=== PATIENT | male | born 1990 | race Caucasian/White ===

== ENCOUNTER 2016-10-31 10:09 | Emergency (ER) | payer SELFPAY ==
--- NOTE | 2016-10-31 12:23 | ED CLINICAL REPORT ---
Clinical Report - Physicians/Mid Levels [facility] [address] [place] [place] [address] 10/31/2016 10:09 Patient: WOODROW SALINAS Arrived- By private vehicle. Historian- patient. HISTORY OF PRESENT ILLNESS Chief Complaint: SKIN RASH. This started About 1 week ago and is still present (stating the same). It was abrupt in onset and has been constant but is not gone now. It is described as painful and burning. It has been located on the left chest. A cause has been identified (shingles). No recent medication, insect bite or food exposure. Was not recently exposed to poison sandra or poison oak. (patient reports he is unable to have adequate pain control. States that the hydrocodone that he was prescribed does not help with the pain.). Similar symptoms previously: None. Recent medical care: Not recently seen/assessed. REVIEW OF SYSTEMS No sore throat, cough, headache, eye irritation or chest pain. No abdominal pain, nausea or vomiting. All systems otherwise negative, except as recorded above. PAST HISTORY See nurses notes. Tetanus immunization status is up-to-date. SOCIAL HISTORY Current every day smoker. No alcohol use or drug use. No recent travel. Is a local resident. FAMILY HISTORY Negative. ADDITIONAL NOTES The nursing notes have been reviewed. PHYSICAL EXAM Vital Signs: 10/31/2016 10:37 BP: 132/79. HR: 76. RR: 18. O2 saturation: 100%. Temp: 98.8 F. Blood pressure normal. Oxygen saturation normal. Appearance: Alert. Oriented X3. No acute distress. Eyes: Pupils equal, round and reactive to light. Conjunctivae and eyelids normal. ENT: Ears normal. Nose normal. Pharynx normal. Neck: Neck supple. CVS: Normal heart rate and rhythm. Heart sounds normal. Respiratory: No respiratory distress. Breath sounds normal. Chest nontender. Abdomen: Nontender. No organomegaly. Skin: (There is a vesicular type rash located at the T2 dermatome on the left. Does not cross midline. No surrounding erythema. No crepitus. area is appropriately tender. No bony modalities. No crepitus. No significant swelling.). Extremities: Normal external inspection. Extremities nontender. Neuro: Oriented X 3. No motor deficit. No sensory deficit. PROGRESS AND PROCEDURES Course of Care: The patient is a pleasant 25-year-old male with recent diagnosis of shingles presenting for evaluation of left-sidedrash and inability to sleep due to the pain. Patient had trial of hydrocodone however this is not helping with pain. We'll prescribe a stronger opioid pain medication as the rash can be very uncomfortable. I discussion with patient in regards to superinfection. Patient is aware of signs of worsening infection and will return to the emergency department if this happens. No other symptoms at this time. Patient is a good outpatient candidate. Patient is nontoxic and is in no acute distress. I discussion with patient in regards to workup, diagnosis, home care, follow-up, and return precautions. All questions answered. The patient expressed understanding of these instructions and was agreeable to them. I discussed with patient in regards to following up with primary care doctor. The patient states he is unable to get an appointment with his primary care doctor. Resources provided for clinic appointments as well. Had discussion with patient in regards to Controlled substances and need for follow-up with primary care doctor for further refills. Disposition: Discharged. Condition: good. CLINICAL IMPRESSION Neuralgia- thoracic radiculopathy (acute left upper chest). INSTRUCTIONS Warnings: GENERAL WARNINGS: Return or contact your physician immediately if your condition worsens or changes unexpectedly, if not improving as expected, or if other problems arise. Specifically return if pain, vomiting, bleeding, breathing difficulty or fever. Your Current Medications: Prescription Medications: Percocet 5 mg/325 mg: take 1 tablet orally every 6 hours as needed for pain. Dispense twenty (20). No refill. Substitution is permissible. Follow-up: Return to the emergency department as needed. Follow up with your doctor in three days. Reason for referral: recheck today's concerns. Summary of care provided to patient via paper. Screening today revealed the patient's blood pressure to be in the normal range. The patient should follow up with a primary care provider for blood pressure management. Understanding of the discharge instructions verbalized by patient. Follow-up with: [facility], , , [address], , [place], [address] Follow up. Reason for referral: contact for follow up or medication refills. Summary of care provided to patient via paper. (Electronically signed by Spenser Rosales Dr. 11/06/2016 16:05)
--- NOTE | 2016-10-31 12:23 | ED NURSING NOTES ---
Clinical Report - Nurses [facility] [address] [place] [address] 10/31/2016 10:09 Patient: WOODROW SALINAS TRIAGE Triage time 10:37 Oct 31 2016. Acuity: LEVEL 5. Chief Complaint: RECHECK OF ILLNESS STATUS. Alert. No acute distress. IVANA COMA SCORE: Ivana Coma Scale: 15- eyes open spontaneously (4); best verbal response- oriented x 4 (5); best motor response- obeys commands (6). --10:41 Shira Wallis R.N. 10:37 10/31/16. BP: 132/79. HR: 76. RR: 18. O2 saturation: 100%. Temp: 98.8 F. Pain level now 7/10. --10:41 Shira Wallis R.N. Weight: 86.1 kg stated. Height/Length: 71 inches Per Patient. BMI: 26.5. --10:36 Shira Wallis R.N. Medications Acyclovir Oral. --10:41 Shira Wallis R.N. Hydrocodone-Acetaminophen Oral. --10:41 Shira Wallis R.N. The following entry was struck by Shira Wallis R.N., 10:41 (10/31/16) Reason - other. <<STRICKEN ENTRY-- None. --10:38 Shira Wallis R.N. --END STRIKE>>. Medication/allergy information source: the patient. --10:41 Shira Wallis R.N. Allergies Tramadol. Definite Mild(itching) --10:38 Shira Wallis R.N. History Arrived by private vehicle. Historian: patient. Primary physician (none). ( Can't sleep because the Shingles are so painful.). Previous treatment: Previously seen in ED. SOCIAL HX: Smoker- current status unknown (cigarette). No alcohol use or drug use. FALL RISK ASSESSMENT: Fall risk assessment completed. No fall risk identified. NUTRITIONAL RISK ASSESSMENT: The nutritional risk assessment revealed no deficiencies. FUNCTIONAL ASSESSMENT: Functional assessment: no impairments noted. LEARNING NEEDS ASSESSMENT: The learning needs assessment revealed no barriers. SKIN INTEGRITY ASSESSMENT: Skin integrity risk assessment completed. No skin integrity risk identified. --10:41 Shira Wallis R.N. PROBLEMS: Herpes Zoster. Bursitis. Neck Pain. Migraine Headache. Sprain. Migraines. Bronchitis. Cellulitis. Chronic Back Pain. Immunizations. Insomnia. Back Pain. --10:38 Shira Wallis R.N. Interventions ID band on patient. To room. --10:41 Shira Wallis R.N. PHYSICAL ASSESSMENT Ambulatory to room. GENERAL / NEURO / PSYCH: Appears in no acute distress. EXTREMITIES: Capillary refill is less than 2 seconds in the extremities. SKIN: Skin is warm and dry. --10:55 Shira Wallis R.N. NURSING PROGRESS NOTES Patient ready for evaluation- ED physician notified. --10:41 Shira Wallis R.N. DISPOSITION / DISCHARGE Condition at departure: improved. No learning barriers present. Discharge instructions provided and reviewed with the patient. Reviewed medication(s) side effects, precautions, dosing and course information. Prescription(s) given to the patient. Patient verbalized understanding. Written instructions provided in Lebanese. The patient was discharged home. He left the Emergency Department ambulatory and via private vehicle. Patient driving. Medication list reviewed and validated. --12:40 Britt Win R.N. 12:35 10/31/16. BP: 127/93. HR: 76. RR: 18. O2 saturation: 100% on room air. Temp: deferred. Pain level now: 03/06. 10:37 10/31/16. BP: 132/79. HR: 76. RR: 18. O2 saturation: 100%. Temp: 98.8 F. Pain level now 05/06. --12:40 Britt Win R.N. Locked/Released at 10/31/2016 12:41 by Britt Win R.N.
--- NOTE | 2016-10-31 12:23 | ED NURSING NOTES ---
Clinical Report - Nurses [facility] [address] [place] [address] 10/31/2016 10:09 Patient: WOODROW SALINAS TRIAGE Triage time 10:37 Oct 31 2016. Acuity: LEVEL 5. Chief Complaint: RECHECK OF ILLNESS STATUS. Alert. No acute distress. IVANA COMA SCORE: Ivana Coma Scale: 15- eyes open spontaneously (4); best verbal response- oriented x 4 (5); best motor response- obeys commands (6). --10:41 Shira Wallis R.N. 10:37 10/31/16. BP: 132/79. HR: 76. RR: 18. O2 saturation: 100%. Temp: 98.8 F. Pain level now 7/10. --10:41 Shira Wallis R.N. Weight: 86.1 kg stated. Height/Length: 71 inches Per Patient. BMI: 26.5. --10:36 Shira Wallis R.N. Medications Acyclovir Oral. --10:41 Shira Wallis R.N. Hydrocodone-Acetaminophen Oral. --10:41 Shira Wallis R.N. The following entry was struck by Shira Wallis R.N., 10:41 (10/31/16) Reason - other. <<STRICKEN ENTRY-- None. --10:38 Shira Wallis R.N. --END STRIKE>>. Medication/allergy information source: the patient. --10:41 Shira Wallis R.N. Allergies Tramadol. Definite Mild(itching) --10:38 Shira Wallis R.N. History Arrived by private vehicle. Historian: patient. Primary physician (none). ( Can't sleep because the Shingles are so painful.). Previous treatment: Previously seen in ED. SOCIAL HX: Smoker- current status unknown (cigarette). No alcohol use or drug use. FALL RISK ASSESSMENT: Fall risk assessment completed. No fall risk identified. NUTRITIONAL RISK ASSESSMENT: The nutritional risk assessment revealed no deficiencies. FUNCTIONAL ASSESSMENT: Functional assessment: no impairments noted. LEARNING NEEDS ASSESSMENT: The learning needs assessment revealed no barriers. SKIN INTEGRITY ASSESSMENT: Skin integrity risk assessment completed. No skin integrity risk identified. --10:41 Shira Wallis R.N. PROBLEMS: Herpes Zoster. Bursitis. Neck Pain. Migraine Headache. Sprain. Migraines. Bronchitis. Cellulitis. Chronic Back Pain. Immunizations. Insomnia. Back Pain. --10:38 Shira Wallis R.N. Interventions ID band on patient. To room. --10:41 Shira Wallis R.N. PHYSICAL ASSESSMENT Ambulatory to room. GENERAL / NEURO / PSYCH: Appears in no acute distress. EXTREMITIES: Capillary refill is less than 2 seconds in the extremities. SKIN: Skin is warm and dry. --10:55 Shira Wallis R.N. NURSING PROGRESS NOTES Patient ready for evaluation- ED physician notified. --10:41 Shira Wallis R.N. DISPOSITION / DISCHARGE Condition at departure: improved. No learning barriers present. Discharge instructions provided and reviewed with the patient. Reviewed medication(s) side effects, precautions, dosing and course information. Prescription(s) given to the patient. Patient verbalized understanding. Written instructions provided in Spanish. The patient was discharged home. He left the Emergency Department ambulatory and via private vehicle. Patient driving. Medication list reviewed and validated. --12:40 Britt Win R.N. 12:35 10/31/16. BP: 127/93. HR: 76. RR: 18. O2 saturation: 100% on room air. Temp: deferred. Pain level now: 03/06. 10:37 10/31/16. BP: 132/79. HR: 76. RR: 18. O2 saturation: 100%. Temp: 98.8 F. Pain level now 05/06. --12:40 Britt Win R.N. Locked/Released at 10/31/2016 12:41 by Britt Win R.N.
--- NOTE | 2016-10-31 12:23 | ED CLINICAL REPORT ---
Clinical Report - Physicians/Mid Levels [facility] [address] [place] [address] 10/31/2016 10:09 Patient: WOODROW SALINAS Arrived- By private vehicle. Historian- patient. HISTORY OF PRESENT ILLNESS Chief Complaint: SKIN RASH. This started About 1 week ago and is still present (stating the same). It was abrupt in onset and has been constant but is not gone now. It is described as painful and burning. It has been located on the left chest. A cause has been identified (shingles). No recent medication, insect bite or food exposure. Was not recently exposed to poison sandra or poison oak. (patient reports he is unable to have adequate pain control. States that the hydrocodone that he was prescribed does not help with the pain.). Similar symptoms previously: None. Recent medical care: Not recently seen/assessed. REVIEW OF SYSTEMS No sore throat, cough, headache, eye irritation or chest pain. No abdominal pain, nausea or vomiting. All systems otherwise negative, except as recorded above. PAST HISTORY See nurses notes. Tetanus immunization status is up-to-date. SOCIAL HISTORY Current every day smoker. No alcohol use or drug use. No recent travel. Is a local resident. FAMILY HISTORY Negative. ADDITIONAL NOTES The nursing notes have been reviewed. PHYSICAL EXAM Vital Signs: 10/31/2016 10:37 BP: 132/79. HR: 76. RR: 18. O2 saturation: 100%. Temp: 98.8 F. Blood pressure normal. Oxygen saturation normal. Appearance: Alert. Oriented X3. No acute distress. Eyes: Pupils equal, round and reactive to light. Conjunctivae and eyelids normal. ENT: Ears normal. Nose normal. Pharynx normal. Neck: Neck supple. CVS: Normal heart rate and rhythm. Heart sounds normal. Respiratory: No respiratory distress. Breath sounds normal. Chest nontender. Abdomen: Nontender. No organomegaly. Skin: (There is a vesicular type rash located at the T2 dermatome on the left. Does not cross midline. No surrounding erythema. No crepitus. area is appropriately tender. No bony modalities. No crepitus. No significant swelling.). Extremities: Normal external inspection. Extremities nontender. Neuro: Oriented X 3. No motor deficit. No sensory deficit. PROGRESS AND PROCEDURES Course of Care: The patient is a pleasant 25-year-old male with recent diagnosis of shingles presenting for evaluation of left-sidedrash and inability to sleep due to the pain. Patient had trial of hydrocodone however this is not helping with pain. We'll prescribe a stronger opioid pain medication as the rash can be very uncomfortable. I discussion with patient in regards to superinfection. Patient is aware of signs of worsening infection and will return to the emergency department if this happens. No other symptoms at this time. Patient is a good outpatient candidate. Patient is nontoxic and is in no acute distress. I discussion with patient in regards to workup, diagnosis, home care, follow-up, and return precautions. All questions answered. The patient expressed understanding of these instructions and was agreeable to them. I discussed with patient in regards to following up with primary care doctor. The patient states he is unable to get an appointment with his primary care doctor. Resources provided for clinic appointments as well. Had discussion with patient in regards to Controlled substances and need for follow-up with primary care doctor for further refills. Disposition: Discharged. Condition: good. CLINICAL IMPRESSION Neuralgia- thoracic radiculopathy (acute left upper chest). INSTRUCTIONS Warnings: GENERAL WARNINGS: Return or contact your physician immediately if your condition worsens or changes unexpectedly, if not improving as expected, or if other problems arise. Specifically return if pain, vomiting, bleeding, breathing difficulty or fever. Your Current Medications: Prescription Medications: Percocet 5 mg/325 mg: take 1 tablet orally every 6 hours as needed for pain. Dispense twenty (20). No refill. Substitution is permissible. Follow-up: Return to the emergency department as needed. Follow up with your doctor in three days. Reason for referral: recheck today's concerns. Summary of care provided to patient via paper. Screening today revealed the patient's blood pressure to be in the normal range. The patient should follow up with a primary care provider for blood pressure management. Understanding of the discharge instructions verbalized by patient. Follow-up with: [facility], , , [address], , [place], [address] Follow up. Reason for referral: contact for follow up or medication refills. Summary of care provided to patient via paper. (Electronically signed by Spenser Rosales Dr. 11/06/2016 16:05)
--- NOTE | 2016-11-06 16:05 | ED MAR SUMMARY ---
..... Medication Administration Record [facility] [address], [place] [id number] Patient: WOODROW SALINAS Visit ID: [id number] 25y, M Weight: 86.1 kg Height/Length: 71 in BMI: 26.5 ALLERGIES: Tramadol
--- NOTE | 2016-11-06 16:05 | ED MAR SUMMARY ---
..... Medication Administration Record [facility] [address] [place], [place] [id number] Patient: WOODROW SALINAS Visit ID: [id number] 25y, M Weight: 86.1 kg Height/Length: 71 in BMI: 26.5 ALLERGIES: Tramadol
--- NOTE | 2016-11-06 16:05 | ED MED RECONCILIATION SUMMARY ---
Patient: WOODROW SALINAS Medication Reconciliation Report [facility] VisitID: [id number] [address] [place] [address] 25y, M Registration Date/Time: 10/31/2016 Weight: 86.1 kg Height/Length: 71 in. BMI: 26.5 ALLERGIES: Tramadol The patient's Home Medications are listed below: THE FOLLOWING MEDICATIONS NEED TO BE RECONCILED: Acyclovir Oral Hydrocodone-Acetaminophen Oral The source(s) of the original Home Medication information: patient The following Medications were given to the patient in the Emergency Department: None. The following Medications were prescribed to the patient: Percocet 5 mg/325 mg: take 1 tablet orally every 6 hours as needed for pain. Dispense twenty (20). No refill. Substitution is permissible. -- Spenser Rosales Dr.
--- NOTE | 2016-11-06 16:05 | ED DISCHARGE INSTRUCTIONS ---
Patient: WOODROW SALINAS General Instructions [facility] VisitID: [id number] [address] [place] [place] [address] 25y, M Registration Date/Time: 10/31/2016 Neuralgia- thoracic radiculopathy (acute left upper chest). INSTRUCTIONS Warnings: GENERAL WARNINGS: Return or contact your physician immediately if your condition worsens or changes unexpectedly, if not improving as expected, or if other problems arise. Specifically return if pain, vomiting, bleeding, breathing difficulty or fever. Your Current Medications: Prescription Medications: Percocet 5 mg/325 mg: take 1 tablet orally every 6 hours as needed for pain. Dispense twenty (20). No refill. Substitution is permissible. Follow-up: Return to the emergency department as needed. Follow up with your doctor in three days. Reason for referral: recheck today's concerns. Summary of care provided to patient via paper. Screening today revealed the patient's blood pressure to be in the normal range. The patient should follow up with a primary care provider for blood pressure management. Understanding of the discharge instructions verbalized by patient. Follow-up with: [facility], , , [address], , [place], [id number] Follow up. Reason for referral: contact for follow up or medication refills. Summary of care provided to patient via paper. ADDITIONAL INFORMATION Peripheral Neuropathy Peripheral Neuropathy is a condition that affects the nerves of the arms or legs. It causes a change in physical feeling. Sometimes it causes weakness in the muscles. You may feel tingling, numbness or shooting pains (especially at night). You may be sensitive to light touch or temperature changes. Neuropathy may be caused by being exposed to certain drugs or chemicals, or because of a vitamin deficiency. It can be a complication of a chronic disease such as diabetes or alcoholism. A ruptured disk with pressure on the spinal nerve may also cause this condition. Home Care: 1) You may take acetaminophen (Tylenol) or ibuprofen (Advil, Motrin) for pain, unless another pain medicine has been prescribed. 2) If the neuropathy affects your feet, keep your toenails trimmed and wash your feet often. Wear shoes that fit well. Doing so avoids pressure points, blisters and ulcers. Due to a loss of feeling, you may not notice injuries, so look at your feet carefully (including the soles of your feet and between your toes) at least once a week. Tell your doctor if you have any open wounds or signs of infection. 3) If vitamins have been prescribed, be sure to remind yourself to take them daily. Follow Up with your doctor or as advised by our staff. You may need further testing to find out the exact cause of your neuropathy. Get Prompt Medical Attention if any of the following occur: -- Redness, swelling or pus coming from the toes or feet -- Loss of bowel or bladder control (if this is a new symptom for you) -- Muscle weakness (if this is a new symptom for you) Oxycodone Hydrochloride, Acetaminophen Oral tablet What is this medicine? ACETAMINOPHEN; OXYCODONE (a set a ELISE rod fen; ox i KOE done) is a pain reliever. It is used to treat mild to moderate pain. How should I use this medicine? Take this medicine by mouth with a full glass of water. Follow the directions on the prescription label. Take your medicine at regular intervals. Do not take your medicine more often than directed. Talk to your fiscal economist regarding the use of this medicine in children. Special care may be needed. Patients over 65 years old may have a stronger reaction and need a smaller dose. What side effects may I notice from receiving this medicine? Side effects that you should report to your doctor or health day care teacher as soon as possible: allergic reactions like skin rash, itching or hives, swelling of the face, lips, or tongue breathing difficulties, wheezing confusion light headedness or fainting spells severe stomach pain yellowing of the skin or the whites of the eyes Side effects that usually do not require medical attention (report to your doctor or health day care teacher if they continue or are bothersome): dizziness drowsiness nausea vomiting What may interact with this medicine? alcohol antihistamines barbiturates like amobarbital, butalbital, butabarbital, methohexital, pentobarbital, phenobarbital, thiopental, and secobarbital benztropine drugs for bladder problems like solifenacin, trospium, oxybutynin, tolterodine, hyoscyamine, and methscopolamine drugs for breathing problems like ipratropium and tiotropium drugs for certain stomach or intestine problems like propantheline, homatropine methylbromide, glycopyrrolate, atropine, belladonna, and dicyclomine general anesthetics like etomidate, ketamine, nitrous oxide, propofol, desflurane, enflurane, halothane, isoflurane, and sevoflurane medicines for depression, anxiety, or psychotic disturbances medicines for sleep muscle relaxants naltrexone narcotic medicines (opiates) for pain phenothiazines like perphenazine, thioridazine, chlorpromazine, mesoridazine, fluphenazine, prochlorperazine, promazine, and trifluoperazine scopolamine tramadol trihexyphenidyl What if I miss a dose? If you miss a dose, take it as soon as you can. If it is almost time for your next dose, take only that dose. Do not take double or extra doses. Where should I keep my medicine? Keep out of the reach of children. This medicine can be abused. Keep your medicine in a safe place to protect it from theft. Do not share this medicine with anyone. Selling or giving away this medicine is dangerous and against the law. Store at room temperature between 20 and 25 degrees C (68 and 77 degrees F). Keep container tightly closed. Protect from light. This medicine may cause accidental overdose and if it is taken by other adults, children, or pets. Flush any unused medicine down the toilet to reduce the chance of harm. Do not use the medicine after the expiration date. What should I tell my health care provider before I take this medicine? They need to know if you have any of these conditions: brain tumor Crohn's disease, inflammatory bowel disease, or ulcerative colitis drink more than 3 alcohol containing drinks per day drug abuse or addiction head injury heart or circulation problems kidney disease or problems going to the bathroom liver disease lung disease, asthma, or breathing problems an unusual or allergic reaction to acetaminophen, oxycodone, other opioid analgesics, other medicines, foods, dyes, or preservatives or trying to get breast-feeding What should I watch for while using this medicine? Tell your doctor or health day care teacher if your pain does not go away, if it gets worse, or if you have new or a different type of pain. You may develop tolerance to the medicine. Tolerance means that you will need a higher dose of the medication for pain relief. Tolerance is normal and is expected if you take this medicine for a long time. Do not suddenly stop taking your medicine because you may develop a severe reaction. Your body becomes used to the medicine. This does NOT mean you are addicted. Addiction is a behavior related to getting and using a drug for a non-medical reason. If you have pain, you have a medical reason to take pain medicine. Your doctor will tell you how much medicine to take. If your doctor wants you to stop the medicine, the dose will be slowly lowered over time to avoid any side effects. You may get drowsy or dizzy. Do not drive, use machinery, or do anything that needs mental alertness until you know how this medicine affects you. Do not stand or sit up quickly, especially if you are an older patient. This reduces the risk of dizzy or fainting spells. Alcohol may interfere with the effect of this medicine. Avoid alcoholic drinks. There are different types of narcotic medicines (opiates) for pain. If you take more than one type at the same time, you may have more side effects. Give your health care provider a list of all medicines you use. Your doctor will tell you how much medicine to take. Do not take more medicine than directed. Call emergency for help if you have problems breathing. The medicine will cause constipation. Try to have a bowel movement at least every 2 to 3 days. If you do not have a bowel movement for 3 days, call your doctor or health day care teacher. Do not take Tylenol (acetaminophen) or medicines that have acetaminophen with this medicine. Too much acetaminophen can be very dangerous. Many nonprescription medicines contain acetaminophen. Always read the labels carefully to avoid taking more acetaminophen. You have been given the following additional information: Neuropathy, Peripheral Oxycodone Hydrochloride, Acetaminophen Oral tablet (Electronically signed by Spenser Rosales Dr. 11/06/2016 16:05)
--- NOTE | 2016-11-06 16:05 | ED DISCHARGE INSTRUCTIONS ---
Patient: WOODROW SALINAS General Instructions [facility] VisitID: [id number] [address] [place] [address] 25y, M Registration Date/Time: 10/31/2016 Neuralgia- thoracic radiculopathy (acute left upper chest). INSTRUCTIONS Warnings: GENERAL WARNINGS: Return or contact your physician immediately if your condition worsens or changes unexpectedly, if not improving as expected, or if other problems arise. Specifically return if pain, vomiting, bleeding, breathing difficulty or fever. Your Current Medications: Prescription Medications: Percocet 5 mg/325 mg: take 1 tablet orally every 6 hours as needed for pain. Dispense twenty (20). No refill. Substitution is permissible. Follow-up: Return to the emergency department as needed. Follow up with your doctor in three days. Reason for referral: recheck today's concerns. Summary of care provided to patient via paper. Screening today revealed the patient's blood pressure to be in the normal range. The patient should follow up with a primary care provider for blood pressure management. Understanding of the discharge instructions verbalized by patient. Follow-up with: [facility], , , [address], , [place], [id number] Follow up. Reason for referral: contact for follow up or medication refills. Summary of care provided to patient via paper. ADDITIONAL INFORMATION Peripheral Neuropathy Peripheral Neuropathy is a condition that affects the nerves of the arms or legs. It causes a change in physical feeling. Sometimes it causes weakness in the muscles. You may feel tingling, numbness or shooting pains (especially at night). You may be sensitive to light touch or temperature changes. Neuropathy may be caused by being exposed to certain drugs or chemicals, or because of a vitamin deficiency. It can be a complication of a chronic disease such as diabetes or alcoholism. A ruptured disk with pressure on the spinal nerve may also cause this condition. Home Care: 1) You may take acetaminophen (Tylenol) or ibuprofen (Advil, Motrin) for pain, unless another pain medicine has been prescribed. 2) If the neuropathy affects your feet, keep your toenails trimmed and wash your feet often. Wear shoes that fit well. Doing so avoids pressure points, blisters and ulcers. Due to a loss of feeling, you may not notice injuries, so look at your feet carefully (including the soles of your feet and between your toes) at least once a week. Tell your doctor if you have any open wounds or signs of infection. 3) If vitamins have been prescribed, be sure to remind yourself to take them daily. Follow Up with your doctor or as advised by our staff. You may need further testing to find out the exact cause of your neuropathy. Get Prompt Medical Attention if any of the following occur: -- Redness, swelling or pus coming from the toes or feet -- Loss of bowel or bladder control (if this is a new symptom for you) -- Muscle weakness (if this is a new symptom for you) Oxycodone Hydrochloride, Acetaminophen Oral tablet What is this medicine? ACETAMINOPHEN; OXYCODONE (a set a ELISE rod fen; ox i KOE done) is a pain reliever. It is used to treat mild to moderate pain. How should I use this medicine? Take this medicine by mouth with a full glass of water. Follow the directions on the prescription label. Take your medicine at regular intervals. Do not take your medicine more often than directed. Talk to your proposal editor regarding the use of this medicine in children. Special care may be needed. Patients over 65 years old may have a stronger reaction and need a smaller dose. What side effects may I notice from receiving this medicine? Side effects that you should report to your doctor or health after school caregiver as soon as possible: allergic reactions like skin rash, itching or hives, swelling of the face, lips, or tongue breathing difficulties, wheezing confusion light headedness or fainting spells severe stomach pain yellowing of the skin or the whites of the eyes Side effects that usually do not require medical attention (report to your doctor or health after school caregiver if they continue or are bothersome): dizziness drowsiness nausea vomiting What may interact with this medicine? alcohol antihistamines barbiturates like amobarbital, butalbital, butabarbital, methohexital, pentobarbital, phenobarbital, thiopental, and secobarbital benztropine drugs for bladder problems like solifenacin, trospium, oxybutynin, tolterodine, hyoscyamine, and methscopolamine drugs for breathing problems like ipratropium and tiotropium drugs for certain stomach or intestine problems like propantheline, homatropine methylbromide, glycopyrrolate, atropine, belladonna, and dicyclomine general anesthetics like etomidate, ketamine, nitrous oxide, propofol, desflurane, enflurane, halothane, isoflurane, and sevoflurane medicines for depression, anxiety, or psychotic disturbances medicines for sleep muscle relaxants naltrexone narcotic medicines (opiates) for pain phenothiazines like perphenazine, thioridazine, chlorpromazine, mesoridazine, fluphenazine, prochlorperazine, promazine, and trifluoperazine scopolamine tramadol trihexyphenidyl What if I miss a dose? If you miss a dose, take it as soon as you can. If it is almost time for your next dose, take only that dose. Do not take double or extra doses. Where should I keep my medicine? Keep out of the reach of children. This medicine can be abused. Keep your medicine in a safe place to protect it from theft. Do not share this medicine with anyone. Selling or giving away this medicine is dangerous and against the law. Store at room temperature between 20 and 25 degrees C (68 and 77 degrees F). Keep container tightly closed. Protect from light. This medicine may cause accidental overdose and if it is taken by other adults, children, or pets. Flush any unused medicine down the toilet to reduce the chance of harm. Do not use the medicine after the expiration date. What should I tell my health care provider before I take this medicine? They need to know if you have any of these conditions: brain tumor Crohn's disease, inflammatory bowel disease, or ulcerative colitis drink more than 3 alcohol containing drinks per day drug abuse or addiction head injury heart or circulation problems kidney disease or problems going to the bathroom liver disease lung disease, asthma, or breathing problems an unusual or allergic reaction to acetaminophen, oxycodone, other opioid analgesics, other medicines, foods, dyes, or preservatives or trying to get breast-feeding What should I watch for while using this medicine? Tell your doctor or health after school caregiver if your pain does not go away, if it gets worse, or if you have new or a different type of pain. You may develop tolerance to the medicine. Tolerance means that you will need a higher dose of the medication for pain relief. Tolerance is normal and is expected if you take this medicine for a long time. Do not suddenly stop taking your medicine because you may develop a severe reaction. Your body becomes used to the medicine. This does NOT mean you are addicted. Addiction is a behavior related to getting and using a drug for a non-medical reason. If you have pain, you have a medical reason to take pain medicine. Your doctor will tell you how much medicine to take. If your doctor wants you to stop the medicine, the dose will be slowly lowered over time to avoid any side effects. You may get drowsy or dizzy. Do not drive, use machinery, or do anything that needs mental alertness until you know how this medicine affects you. Do not stand or sit up quickly, especially if you are an older patient. This reduces the risk of dizzy or fainting spells. Alcohol may interfere with the effect of this medicine. Avoid alcoholic drinks. There are different types of narcotic medicines (opiates) for pain. If you take more than one type at the same time, you may have more side effects. Give your health care provider a list of all medicines you use. Your doctor will tell you how much medicine to take. Do not take more medicine than directed. Call emergency for help if you have problems breathing. The medicine will cause constipation. Try to have a bowel movement at least every 2 to 3 days. If you do not have a bowel movement for 3 days, call your doctor or health after school caregiver. Do not take Tylenol (acetaminophen) or medicines that have acetaminophen with this medicine. Too much acetaminophen can be very dangerous. Many nonprescription medicines contain acetaminophen. Always read the labels carefully to avoid taking more acetaminophen. You have been given the following additional information: Neuropathy, Peripheral Oxycodone Hydrochloride, Acetaminophen Oral tablet (Electronically signed by Spenser Rosales Dr. 11/06/2016 16:05)
--- NOTE | 2016-11-06 16:05 | ED MED RECONCILIATION SUMMARY ---
Patient: WOODROW SALINAS Medication Reconciliation Report [facility] VisitID: [id number] [address] [place] [address] 25y, M Registration Date/Time: 10/31/2016 Weight: 86.1 kg Height/Length: 71 in. BMI: 26.5 ALLERGIES: Tramadol The patient's Home Medications are listed below: THE FOLLOWING MEDICATIONS NEED TO BE RECONCILED: Acyclovir Oral Hydrocodone-Acetaminophen Oral The source(s) of the original Home Medication information: patient The following Medications were given to the patient in the Emergency Department: None. The following Medications were prescribed to the patient: Percocet 5 mg/325 mg: take 1 tablet orally every 6 hours as needed for pain. Dispense twenty (20). No refill. Substitution is permissible. -- Spenser Rosales Dr.
== END 2016-10-31 12:30 | disposition home or self-care (01) ==
LOC: ED SRH 10:09
DX: M54.14 Radiculopathy, thoracic region (principal); F17.210 Nicotine dependence, cigarettes, uncomplicated; Z88.5 Allergy status to narcotic agent

== ENCOUNTER 2017-01-18 18:43 | Emergency (ER) | payer SELFPAY ==
--- NOTE | 2017-01-18 19:22 | ED CLINICAL REPORT ---
Clinical Report - Physicians/[facility] [address] [place] [address] 01/18/2017 18:44 Patient: WOODROW SALINAS Time Seen: 19:04; initial patient contact, initial documentation, patient care assumed. Arrived- By private vehicle. Historian- patient. HISTORY OF PRESENT ILLNESS Chief Complaint: HEMORRHOIDS. This started about 1 weeks ago, has been moderate and is still present. The patient has not had dark stools, rectal bleeding or pain or hard stools. No constipation, nausea, vomiting, diarrhea or abdominal pain. 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 No recent travel. No known contact with a sick individual. Similar symptoms previously: Frequently, as bad. Recent medical care: Not recently seen/assessed. REVIEW OF SYSTEMS No complaint of rectal foreign body. He has had no rectal intercourse. No fever, difficulty breathing or chest pain. He has had skin rash. All systems otherwise negative, except as recorded above. PAST HISTORY See nurses notes. PROBLEMS: Neuralgia. Herpes Zoster. Bursitis. Migraine Headache. Sprain. Migraines. Bronchitis. Cellulitis. Chronic Back Pain. Immunizations. Insomnia. Back Pain. --18:53 Sandra Grant R.N. ADDITIONAL SURGERIES: Tympanostomy Tubes. --18:53 Sandra Grant R.N. SOCIAL HISTORY Light tobacco smoker. No alcohol use or drug use. Not a homosexual. No recent travel. Is a local resident. FAMILY HISTORY Negative. ADDITIONAL NOTES The nursing notes have been reviewed with agreement regarding the chief complaint, HPI, ROS, PMH and patient medications and allergies. PHYSICAL EXAM Vital Signs: 01/18/2017 18:50 BP: 122/85. HR: 87. RR: 16. O2 saturation: 100%. Temp: 97.9 F. Pain level now: 8/10. Have been reviewed as normal and appear to be correct. Appearance: Alert. Oriented X3. No acute distress. Eyes: Pupils equal, round and reactive to light. Eyes normal inspection. Neck: Normal inspection. Neck supple. Respiratory: No respiratory distress. Back: Normal inspection. Rectal: Hemorrhoids (x1 pea size external hemorrhoid). No inflamed external hemorrhoids, thrombosed external hemorrhoids, bleeding external hemorrhoids or ruptured external hemorrhoids. Rectal exam normal and nontender. Skin: Skin warm and dry. Normal skin color. No rash. Normal skin turgor. Extremities: Extremities exhibit normal ROM. No lower extremity edema. Neuro: Oriented X 3. No motor deficit. No sensory deficit. PROGRESS AND PROCEDURES Course of Care: old er visits reviewed, pt has reached his 12/mos max for controlled substances gave copy of policy to nurse to give to pt upon dc. Patient counseled in person regarding the patient's stable condition and diagnosis. 19:21. Differential Diagnosis: Other possible considerations: substance abuse, shingles, dermatitis, fungus, hemorrhoids, abscess. Above considerations are based on history and physical exam. Differential diagnosis was discussed with patient. Disposition: Discharged home in good and unchanged condition (19:22). Condition: good and stable. CLINICAL IMPRESSION External hemorrhoids. No prolapsed, bleeding or thrombosed hemorrhoids. Herpes zoster with postherpetic neuralgia. No keratitis or otitis externa. INSTRUCTIONS (over the counter hemorrhoid medicine). Warnings: GENERAL WARNINGS: Return or contact your physician immediately if your condition worsens or changes unexpectedly, if not improving as expected, or if other problems arise. Specifically return if problem worsens. Prescription Medications: Naprosyn 500 mg tablets: take 1 orally every 12 hours as needed for pain. Dispense twenty (20). No refills. Substitution is permissible. Follow-up: Follow up with your doctor in about three days as needed. Call for an appointment. Summary of care provided to patient. Understanding of the discharge instructions verbalized by patient. (Electronically signed by Zuri Gee A.R.N.P. 01/18/2017 22:28)
--- NOTE | 2017-01-18 19:22 | ED NURSING NOTES ---
Clinical Report - Nurses [facility] [address] [place] [address] 01/18/2017 18:44 Patient: WOODROW SALINAS TRIAGE Triage time 18:50 Jan 18 2017. Acuity: LEVEL 3. Chief Complaint: (hemorrhoid, shingles). Alert. No acute distress. IVANA COMA SCORE: Ivana Coma Scale: 15- eyes open spontaneously (4); best verbal response- oriented x 4 (5); best motor response- obeys commands (6). --18:57 Sandra Grant R.N. 18:50 01/18/17. BP: 122/85. HR: 87. RR: 16. O2 saturation: 100%. Temp: 97.9 F. Pain level now: 06/06. --18:57 Sandra Grant R.N. Weight: 81.6 kg stated. Height/Length: 71 inches Per Patient. BMI: 25.1. --18:56 Sandra Grant R.N. Medications Ibuprofen Oral. --18:52 Sandra Grant R.N. Tylenol Oral. --18:52 Sandra Grant R.N. Allergies Tramadol. --18:52 Sandra Grant R.N. History Arrived by private vehicle. Historian: patient. Onset. (about 1 weeks ago). He has had skin rash located on the right shoulder and left shoulder. No fever, cough or difficulty breathing. 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 PAST MEDICAL HX: Immunizations: up-to-date. SOCIAL HX: Current every day light tobacco smoker (cigarette)- less than 1/2 a pack per day. No alcohol use or drug use. No infectious disease exposure. SELF HARM ASSESSMENT: A self harm assessment was performed. The patient answered "no" to the question "Do you have thoughts of harming or killing yourself?". FALL RISK ASSESSMENT: Fall risk assessment completed. No fall risk identified. NUTRITIONAL RISK ASSESSMENT: The nutritional risk assessment revealed no deficiencies. FUNCTIONAL ASSESSMENT: Functional assessment: no impairments noted. LEARNING NEEDS ASSESSMENT: The learning needs assessment revealed no barriers. ABUSE ASSESSMENT: Abuse assessment: The patient was asked "Do you feel safe in your home?". SKIN INTEGRITY ASSESSMENT: Skin integrity risk assessment completed. No skin integrity risk identified. --18:57 Sandra Grant R.N. PROBLEMS: Neuralgia. Herpes Zoster. Bursitis. Migraine Headache. Sprain. Migraines. Bronchitis. Cellulitis. Chronic Back Pain. Immunizations. Insomnia. Back Pain. --18:53 Sandra Grant R.N. ADDITIONAL SURGERIES: Tympanostomy Tubes. --18:53 Sandra Grant R.N. Interventions ID band on patient. --18:57 Sandra Grant R.N. PHYSICAL ASSESSMENT GENERAL / NEURO / PSYCH: Alert. Oriented X 4. Appears in no acute distress. HEENT: Mucous membranes are pink. RESPIRATORY: Respirations not labored. CVS: Capillary refill less than 2 seconds. GI / : Abdomen nontender. SKIN: Skin is warm and dry. --18:57 Sandra Grant R.N. NURSING PROGRESS NOTES Patient gowned. Head of bed elevated. Two patient identifiers checked. Call light placed in reach. Side rails up x 1. Bed placed in lowest position. Brakes of bed on. Patient ready for evaluation- chart flagged. --18:57 Sandra Grant R.N. DISPOSITION / DISCHARGE Departure time: 19:33 Jan 18 2017. Condition at departure: unchanged. No learning barriers present. Discharge instructions provided and reviewed with the patient. Reviewed medication(s) side effects, precautions, dosing and course information. Prescription(s) given to the patient. Reviewed referral to a primary care physician. Patient verbalized understanding. Written instructions provided in [place]ian. The patient was discharged home and accompanied by breadman. He left the Emergency Department ambulatory and via private vehicle. Formal Service Waiter driving. FALL RISK ASSESSMENT: Fall risk assessment completed. No fall risk identified. --19:45 Sandra Grant R.N. Locked/Released at 01/18/2017 19:46 by Sandra Grant R.N.
--- NOTE | 2017-01-18 19:22 | ED NURSING NOTES ---
Clinical Report - Nurses [facility] [address] [place] [address] 01/18/2017 18:44 Patient: WOODROW SALINAS TRIAGE Triage time 18:50 Jan 18 2017. Acuity: LEVEL 3. Chief Complaint: (hemorrhoid, shingles). Alert. No acute distress. IVANA COMA SCORE: Ivana Coma Scale: 15- eyes open spontaneously (4); best verbal response- oriented x 4 (5); best motor response- obeys commands (6). --18:57 Sandra Grant R.N. 18:50 01/18/17. BP: 122/85. HR: 87. RR: 16. O2 saturation: 100%. Temp: 97.9 F. Pain level now: 06/06. --18:57 Sandra Grant R.N. Weight: 81.6 kg stated. Height/Length: 71 inches Per Patient. BMI: 25.1. --18:56 Sandra Grant R.N. Medications Ibuprofen Oral. --18:52 Sandra Grant R.N. Tylenol Oral. --18:52 Sandra Grant R.N. Allergies Tramadol. --18:52 Sandra Grant R.N. History Arrived by private vehicle. Historian: patient. Onset. (about 1 weeks ago). He has had skin rash located on the right shoulder and left shoulder. No fever, cough or difficulty breathing. 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 PAST MEDICAL HX: Immunizations: up-to-date. SOCIAL HX: Current every day light tobacco smoker (cigarette)- less than 1/2 a pack per day. No alcohol use or drug use. No infectious disease exposure. SELF HARM ASSESSMENT: A self harm assessment was performed. The patient answered "no" to the question "Do you have thoughts of harming or killing yourself?". FALL RISK ASSESSMENT: Fall risk assessment completed. No fall risk identified. NUTRITIONAL RISK ASSESSMENT: The nutritional risk assessment revealed no deficiencies. FUNCTIONAL ASSESSMENT: Functional assessment: no impairments noted. LEARNING NEEDS ASSESSMENT: The learning needs assessment revealed no barriers. ABUSE ASSESSMENT: Abuse assessment: The patient was asked "Do you feel safe in your home?". SKIN INTEGRITY ASSESSMENT: Skin integrity risk assessment completed. No skin integrity risk identified. --18:57 Sandra Grant R.N. PROBLEMS: Neuralgia. Herpes Zoster. Bursitis. Migraine Headache. Sprain. Migraines. Bronchitis. Cellulitis. Chronic Back Pain. Immunizations. Insomnia. Back Pain. --18:53 Sandra Grant R.N. ADDITIONAL SURGERIES: Tympanostomy Tubes. --18:53 Sandra Grant R.N. Interventions ID band on patient. --18:57 Sandra Grant R.N. PHYSICAL ASSESSMENT GENERAL / NEURO / PSYCH: Alert. Oriented X 4. Appears in no acute distress. HEENT: Mucous membranes are pink. RESPIRATORY: Respirations not labored. CVS: Capillary refill less than 2 seconds. GI / : Abdomen nontender. SKIN: Skin is warm and dry. --18:57 Sandra Grant R.N. NURSING PROGRESS NOTES Patient gowned. Head of bed elevated. Two patient identifiers checked. Call light placed in reach. Side rails up x 1. Bed placed in lowest position. Brakes of bed on. Patient ready for evaluation- chart flagged. --18:57 Sandra Grant R.N. DISPOSITION / DISCHARGE Departure time: 19:33 Jan 18 2017. Condition at departure: unchanged. No learning barriers present. Discharge instructions provided and reviewed with the patient. Reviewed medication(s) side effects, precautions, dosing and course information. Prescription(s) given to the patient. Reviewed referral to a primary care physician. Patient verbalized understanding. Written instructions provided in [place]ian. The patient was discharged home and accompanied by renal dialysis technician. He left the Emergency Department ambulatory and via private vehicle. Chip Tester driving. FALL RISK ASSESSMENT: Fall risk assessment completed. No fall risk identified. --19:45 Sandra Grant R.N. Locked/Released at 01/18/2017 19:46 by Sandra Grant R.N.
--- NOTE | 2017-01-18 19:22 | ED CLINICAL REPORT ---
Clinical Report - Physicians/Mid Levels [facility] [address] [place] [address] 01/18/2017 18:44 Patient: WOODROW SALINAS Time Seen: 19:04; initial patient contact, initial documentation, patient care assumed. Arrived- By private vehicle. Historian- patient. HISTORY OF PRESENT ILLNESS Chief Complaint: HEMORRHOIDS. This started about 1 weeks ago, has been moderate and is still present. The patient has not had dark stools, rectal bleeding or pain or hard stools. No constipation, nausea, vomiting, diarrhea or abdominal pain. (seen here twice already for shingles, 10/25 and 10/31, pt stated since he was here for the hemorrhoid, he might 'as well kill two birds with one stone' and he would like more meds for his shingles and something for the hemorrhoid, which he checked commercial shrimping captain and it is huge and he is using otc meds and it is not getting better, and he has no health insurance and no pcp). No recent travel. No known contact with a sick individual. Similar symptoms previously: Frequently, as bad. Recent medical care: Not recently seen/assessed. REVIEW OF SYSTEMS No complaint of rectal foreign body. He has had no rectal intercourse. No fever, difficulty breathing or chest pain. He has had skin rash. All systems otherwise negative, except as recorded above. PAST HISTORY See nurses notes. PROBLEMS: Neuralgia. Herpes Zoster. Bursitis. Migraine Headache. Sprain. Migraines. Bronchitis. Cellulitis. Chronic Back Pain. Immunizations. Insomnia. Back Pain. --18:53 Sandra Grant R.N. ADDITIONAL SURGERIES: Tympanostomy Tubes. --18:53 Sandra Grant R.N. SOCIAL HISTORY Light tobacco smoker. No alcohol use or drug use. Not a homosexual. No recent travel. Is a local resident. FAMILY HISTORY Negative. ADDITIONAL NOTES The nursing notes have been reviewed with agreement regarding the chief complaint, HPI, ROS, PMH and patient medications and allergies. PHYSICAL EXAM Vital Signs: 01/18/2017 18:50 BP: 122/85. HR: 87. RR: 16. O2 saturation: 100%. Temp: 97.9 F. Pain level now: 8/10. Have been reviewed as normal and appear to be correct. Appearance: Alert. Oriented X3. No acute distress. Eyes: Pupils equal, round and reactive to light. Eyes normal inspection. Neck: Normal inspection. Neck supple. Respiratory: No respiratory distress. Back: Normal inspection. Rectal: Hemorrhoids (x1 pea size external hemorrhoid). No inflamed external hemorrhoids, thrombosed external hemorrhoids, bleeding external hemorrhoids or ruptured external hemorrhoids. Rectal exam normal and nontender. Skin: Skin warm and dry. Normal skin color. No rash. Normal skin turgor. Extremities: Extremities exhibit normal ROM. No lower extremity edema. Neuro: Oriented X 3. No motor deficit. No sensory deficit. PROGRESS AND PROCEDURES Course of Care: old er visits reviewed, pt has reached his 12/mos max for controlled substances gave copy of policy to nurse to give to pt upon dc. Patient counseled in person regarding the patient's stable condition and diagnosis. 19:21. Differential Diagnosis: Other possible considerations: substance abuse, shingles, dermatitis, fungus, hemorrhoids, abscess. Above considerations are based on history and physical exam. Differential diagnosis was discussed with patient. Disposition: Discharged home in good and unchanged condition (19:22). Condition: good and stable. CLINICAL IMPRESSION External hemorrhoids. No prolapsed, bleeding or thrombosed hemorrhoids. Herpes zoster with postherpetic neuralgia. No keratitis or otitis externa. INSTRUCTIONS (over the counter hemorrhoid medicine). Warnings: GENERAL WARNINGS: Return or contact your physician immediately if your condition worsens or changes unexpectedly, if not improving as expected, or if other problems arise. Specifically return if problem worsens. Prescription Medications: Naprosyn 500 mg tablets: take 1 orally every 12 hours as needed for pain. Dispense twenty (20). No refills. Substitution is permissible. Follow-up: Follow up with your doctor in about three days as needed. Call for an appointment. Summary of care provided to patient. Understanding of the discharge instructions verbalized by patient. (Electronically signed by Zuri Gee A.R.N.P. 01/18/2017 22:28)
--- NOTE | 2017-01-18 22:29 | ED MAR SUMMARY ---
..... Medication Administration Record [facility] [address] [place], [place] [id number] Patient: WOODROW SALINAS Visit ID: [id number] 26y, M Weight: 81.6 kg Height/Length: 71 in BMI: 25.1 ALLERGIES: Tramadol
--- NOTE | 2017-01-18 22:29 | ED MAR SUMMARY ---
..... Medication Administration Record [facility] [address] [place], [place] [id number] Patient: WOODROW SALINAS Visit ID: [id number] 26y, M Weight: 81.6 kg Height/Length: 71 in BMI: 25.1 ALLERGIES: Tramadol
--- NOTE | 2017-01-18 22:29 | ED MED RECONCILIATION SUMMARY ---
Patient: WOODROW SALINAS Medication Reconciliation Report [facility] VisitID: [id number] [place] [address] 26y, M Registration Date/Time: 01/18/2017 Weight: 81.6 kg Height/Length: 71 in. BMI: 25.1 ALLERGIES: Tramadol The patient's Home Medications are listed below: THE FOLLOWING MEDICATIONS NEED TO BE RECONCILED: Ibuprofen Oral Tylenol Oral The source(s) of the original Home Medication information: Not obtained. The following Medications were given to the patient in the Emergency Department: None. The following Medications were prescribed to the patient: Naprosyn 500 mg tablets: take 1 orally every 12 hours as needed for pain. Dispense twenty (20). No refills. Substitution is permissible. -- Zuri Gee A.R.N.P.
--- NOTE | 2017-01-18 22:29 | ED MED RECONCILIATION SUMMARY ---
Patient: WOODROW SALINAS Medication Reconciliation Report [facility] VisitID: [id number] [place] [address] 26y, M Registration Date/Time: 01/18/2017 Weight: 81.6 kg Height/Length: 71 in. BMI: 25.1 ALLERGIES: Tramadol The patient's Home Medications are listed below: THE FOLLOWING MEDICATIONS NEED TO BE RECONCILED: Ibuprofen Oral Tylenol Oral The source(s) of the original Home Medication information: Not obtained. The following Medications were given to the patient in the Emergency Department: None. The following Medications were prescribed to the patient: Naprosyn 500 mg tablets: take 1 orally every 12 hours as needed for pain. Dispense twenty (20). No refills. Substitution is permissible. -- Zuri Gee A.R.N.P.
--- NOTE | 2017-01-18 22:29 | ED DISCHARGE INSTRUCTIONS ---
Patient: WOODROW SALINAS General Instructions [facility] VisitID: [id number] [place] [address] 26y, M Registration Date/Time: 01/18/2017 External hemorrhoids. No prolapsed, bleeding or thrombosed hemorrhoids. Herpes zoster with postherpetic neuralgia. No keratitis or otitis externa. INSTRUCTIONS (over the counter hemorrhoid medicine). Warnings: GENERAL WARNINGS: Return or contact your physician immediately if your condition worsens or changes unexpectedly, if not improving as expected, or if other problems arise. Specifically return if problem worsens. Prescription Medications: Naprosyn 500 mg tablets: take 1 orally every 12 hours as needed for pain. Dispense twenty (20). No refills. Substitution is permissible. Follow-up: Follow up with your doctor in about three days as needed. Call for an appointment. Summary of care provided to patient. Understanding of the discharge instructions verbalized by patient. ADDITIONAL INFORMATION Hemorrhoids,External A hemorrhoid is a local swelling of the veins around the rectum. These most often occur from repeated forceful straining during bowel movements or heavy lifting. It may also occur in the last few months of . A hemorrhoid feels like a soft lump. It may itch from time to time. When it is inflamed it becomes hard and very painful. Home Care: SITZ BATHS: Sit in a tub filled with about 6 inches of hot water. Allow the water to run in order to keep it hot for a total of 10-15 minutes. Repeat this three times a day until pain is relieved. Keep your stools soft to avoid the need to strain when having a bowel movement. Unless another medicine was prescribed, try the following: IF YOU ARE CONSTIPATED: You may use heht-tle-xawfgap laxatives such as MILK OF MAGNESIA (mild acting) or, DULCOLAX (if stronger action is needed). IF YOU ARE NOT CONSTIPATED but stools are hard, try taking Colace (docusate sodium) which is a stool softener. This will soften stools without producing diarrhea. Drinking extra fluids may also help. The use of creams applied to the hemorrhoid itself, such as ANUSOL or PREPARATION H, will be helpful to reduce pain and itching, and speed healing. Prevention: Avoid straining on the toilet by keeping stools soft. Increasing FIBER in your diet (fruits, cereals, vegetables and grains) will promote healthy bowel movement. If this is not working, you may use METAMUCIL and similar products. These are dmxs-gam-gzjawsv fiber supplements. You must drink extra fluids when taking these to avoid constipation. Follow Up with your doctor if you do not begin to respond to the above treatment within the next few days. Get Prompt Medical Attention if any of the following occur: Large amount of rectal bleeding (more than 1 cup of blood in 24 hours) Increasing rectal pain or rectal pain that continues for more than three days of treatment Weakness, dizziness or fainting Vomiting blood (red or black color) Shingles Anyone who has had chicken pox may get shingles later in life. It is caused by the same virus that has remained dormant (asleep) in your body. Shingles usually occurs in adults over the age of 50 or those with lowered immunity (cancer treatment, prolonged steroid use, HIV or AIDS). It starts as a tingling patch of skin on one side of the body. During the first several days small painful blisters appear in this area. However, unlike chicken pox the rash does not spread to the rest of the body. The blister fluid contains the virus. Exposure to shingles cannot cause shingles. However, it can cause chicken pox in anyone who has never had chicken pox before. The contagious period ends when all blisters have crusted over (usually about two weeks after the illness begins). Scarring may occur where the blisters appear. Sometimes there is continued sensitivity and pain in the involved patch of skin for months after the infection (neuralgia). Persons older than 50 or those with a weakened immune system may be treated with antiviral medicines to reduce pain, shorten the illness and prevent neuralgia. Zostavax is a vaccine that can help prevent shingles or make it less painful. It is recommended for adults over the age of 60 who have had chicken pox in the past, but not shingles. Adults over 60 who have had neither chicken pox nor shingles can prevent both diseases with a Varicella vaccine. Home Care: You may use acetaminophen (Tylenol) or ibuprofen (Motrin, Advil) to control pain, unless another medicine was prescribed. [NOTE: If you have chronic liver or kidney disease or ever had a stomach ulcer or GI bleeding, talk with your doctor before using these medicines.] (Aspirin should never be used in anyone under 18 years of age who is ill with a fever. It may cause severe liver damage.) To relieve itching and pain, make a solution of cool water mixed with cornstarch, baking soda, Aveeno Oatmeal, or Domeboro powder (available without a prescription). Apply the solution as a compress to the area. This will soothe the skin. Calamine or Caladryl lotion may help. Oral Benadryl (diphenhydramine) is an antihistamine available at drug and grocery stores. Unless a prescription antihistamine was given, Benadryl may be used to reduce itching if large areas of the skin are involved. Use lower doses during the daytime and higher doses at bedtime since the drug may make you sleepy. [NOTE: Do not use Benadryl if you have glaucoma or if you are a man with trouble urinating due to an enlarged prostate.] Claritin (loratidine) is an antihistamine that causes less drowsiness and is a good alternative for daytime use. Wash skin with soap and water to keep rash free of infection. Trim fingernails to prevent scratching. Scratching the sores may leave scars. Stay home from work or school until all blisters have formed a crust and you are no longer contagious. Follow Up with your doctor or as directed by our staff if the above measures do not bring relief. GET PROMPT MEDICAL ATTENTION if any of the following occur: Headache or stiff neck Increasing drowsiness, confusion or bizarre behavior Cough with trouble breathing or fast breathing (over 25 breaths per minute) Pain, redness or swelling of a joint Fever of 100.4F (38C) or higher, or as directed by your healthcare provider Eye pain or changes in vision or sores that appear near the eye Signs of skin infection (yellow or white drainage from the sores, increasing redness or pain) Weakness or numbness of an arm or leg Difficulty speaking, swallowing or walking Seizure Naproxen Sodium Oral tablet What is this medicine? NAPROXEN (na PROX en) is a non-steroidal anti-inflammatory drug (NSAID). It is used to reduce swelling and to treat pain. This medicine may be used for dental pain, headache, or painful monthly periods. It is also used for painful joint and muscular problems such as arthritis, tendinitis, bursitis, and gout. How should I use this medicine? Take this medicine by mouth with a glass of water. Follow the directions on the prescription label. Take it with food if your stomach gets upset. Try to not lie down for at least 10 minutes after you take it. Take your medicine at regular intervals. Do not take your medicine more often than directed. Long-term, continuous use may increase the risk of heart attack or stroke. A special MedGuide will be given to you by the pharmacist with each prescription and refill. Be sure to read this information carefully each time. Talk to your supervisor data processing regarding the use of this medicine in children. Special care may be needed. What side effects may I notice from receiving this medicine? Side effects that you should report to your doctor or health school child care attendant as soon as possible: black or bloody stools, blood in the urine or vomit blurred vision chest pain difficulty breathing or wheezing nausea or vomiting severe stomach pain skin rash, skin redness, blistering or peeling skin, hives, or itching slurred speech or weakness on one side of the body swelling of eyelids, throat, lips unexplained weight gain or swelling unusually weak or tired yellowing of eyes or skin Side effects that usually do not require medical attention (report to your doctor or health school child care attendant if they continue or are bothersome): constipation headache heartburn What may interact with this medicine? alcohol aspirin cidofovir diuretics lithium methotrexate other drugs for inflammation like ketorolac or prednisone pemetrexed probenecid warfarin What if I miss a dose? If you miss a dose, take it as soon as you can. If it is almost time for your next dose, take only that dose. Do not take double or extra doses. Where should I keep my medicine? Keep out of the reach of children. Store at room temperature between 15 and 30 degrees C (59 and 86 degrees F). Keep container tightly closed. Throw away any unused medicine after the expiration date. What should I tell my health care provider before I take this medicine? They need to know if you have any of these conditions: asthma cigarette smoker drink more than 3 alcohol containing drinks a day heart disease or circulation problems such as heart failure or leg edema (fluid retention) high blood pressure kidney disease liver disease stomach bleeding or ulcers an unusual or allergic reaction to naproxen, aspirin, other NSAIDs, other medicines, foods, dyes, or preservatives or trying to get breast-feeding What should I watch for while using this medicine? Tell your doctor or health school child care attendant if your pain does not get better. Talk to your doctor before taking another medicine for pain. Do not treat yourself. This medicine does not prevent heart attack or stroke. In fact, this medicine may increase the chance of a heart attack or stroke. The chance may increase with longer use of this medicine and in people who have heart disease. If you take aspirin to prevent heart attack or stroke, talk with your doctor or health school child care attendant. Do not take other medicines that contain aspirin, ibuprofen, or naproxen with this medicine. Side effects such as stomach upset, nausea, or ulcers may be more likely to occur. Many medicines available without a prescription should not be taken with this medicine. This medicine can cause ulcers and bleeding in the stomach and intestines at any time during treatment. Do not smoke cigarettes or drink alcohol. These increase irritation to your stomach and can make it more susceptible to damage from this medicine. Ulcers and bleeding can happen without warning symptoms and can cause . You may get drowsy or dizzy. Do not drive, use machinery, or do anything that needs mental alertness until you know how this medicine affects you. Do not stand or sit up quickly, especially if you are an older patient. This reduces the risk of dizzy or fainting spells. This medicine can cause you to bleed more easily. Try to avoid damage to your teeth and gums when you brush or floss your teeth. You have been given the following additional information: Hemorrhoids Herpes Zoster Naproxen Sodium Oral tablet (Electronically signed by Zuri Gee A.R.N.P. 01/18/2017 22:28)
== END 2017-01-18 19:33 | disposition home or self-care (01) ==
LOC: ED SRH 18:43
DX: K64.4 Residual hemorrhoidal skin tags (principal); B02.9 Zoster without complications; G43.909 Migraine, unspecified, not intractable, without status migrainosus; F17.210 Nicotine dependence, cigarettes, uncomplicated; Z88.5 Allergy status to narcotic agent